=== PATIENT | female | born 1960 | race Caucasian/White ===

== ENCOUNTER → 2025-09-10 07:13 | Outpatient (REF) | payer MEDICARE, SELFPAY ==
[2025-09-10 08:30] LABS: Hematocrit 38.5 % (37.0-47.0); Hemoglobin 12.5 g/dL (12.0-16.0); Mean Corp Hgb Conc. 32.5 g/dL (33.0-37.0); Mean Corpuscular Volume 90.4 fL (81.0-99.0); Nucleated Red Blood Cells % 0 %; Platelet Count 212 10^3/uL (130-400); Red Cell Dist. Width 13.4 % (11.5-14.5)
[2025-09-10 08:58] LABS: C-Reactive Protein < 5.00 mg/L (0.0-10.00)
[2025-09-10 09:03] LABS: ALT (SGPT) 14 U/L (0-35); AST (SGOT) 24 U/L (14-36); Albumin 4.3 g/dl (3.5-5.0); Alkaline Phosphatase 40 U/L (38-126); Blood Urea Nitrogen 10 mg/dl (7-17); Calcium 8.9 mg/dl (8.4-10.2); Carbon Dioxide 26 mmol/L (22-30); Chloride 107 mmol/L (98-107); Glucose 86 mg/dl (70-99); Potassium 4.6 mmol/L (3.5-5.1); Sodium 138 mmol/L (135-145); Total Protein 6.7 g/dl (6.3-8.2); Very Low Density Lipoprotein 7 mg/dl (0-30); eGFR > 60.00
[2025-09-10 09:15] LABS: HDL Cholesterol 147 mg/dl; LDL Cholesterol, Calculated 142 mg/dl
[2025-09-12 14:01] LABS: Lyme Antibody Screen, EIA Negative (Negative)
== END ==
LOC: REG 07:13
PROVIDERS: ATTENDING PHYSICIAN Hospitalist
DX: Z00.00 Encounter for general adult medical examination without abnormal findings (principal); M13.80 Other specified arthritis, unspecified site; E78.5 Hyperlipidemia, unspecified; E04.1 Nontoxic single thyroid nodule
CPT/HCPCS: 36415; 80053; 80061; 84443; 85025; 85652; 86140; 86618

== ENCOUNTER → 2025-10-01 07:24 | Outpatient (REF) | payer MEDICARE, SELFPAY | LOC: WDC 07:24 | PROVIDERS: ATTENDING PHYSICIAN Hospitalist | DX: Z12.31 Encounter for screening mammogram for malignant neoplasm of breast (principal) | CPT/HCPCS: 77063; 77067 ==

== ENCOUNTER 2025-10-29 06:17 | Day surgery (SDC) | payer MEDICARE, SELFPAY | END 2025-10-29 13:16 | disposition home or self-care (01) | LOC: GI 06:17 | PROVIDERS: ATTENDING PHYSICIAN Internal Medicine Gastroenterology | DX: Z12.11 Encounter for screening for malignant neoplasm of colon (principal); K64.8 Other hemorrhoids; K57.30 Diverticulosis of large intestine without perforation or abscess without bleeding; Z86.0100 Personal history of colon polyps, unspecified | CPT/HCPCS: G0105 ==